=== PATIENT | male | born 1995 | race Two or more races ===

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

== ENCOUNTER 2018-05-10 19:08 | Emergency (ER) | payer OTHER ==
[2018-05-10] MEDS ORDERED: RANITIDINE 50 MG/2 ML VIAL IVP ONE (19:21)
[2018-05-10] MEDS ORDERED: EPINEPHrine 1 MG/ML INJ IM ONE (19:21)
[2018-05-10] MEDS ORDERED: NS 1,000 ML IV ONE (19:21)
[2018-05-10] MEDS ORDERED: methylPREDNISolone SOD SUCC 125 MG/2 ML VIAL IVP ONE (19:21)
--- NOTE | 2018-05-10 19:25 | EDPHY ---
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 He was eating at a restaurant when he had fairly sudden onset of throat and mouth swelling sensation, associated with an upset stomach. He took Benadryl 50 mg orally and vomited after the Benadryl. He continues to have gradually increasing throat swelling and difficulty swallowing. No rash, dizziness or shortness of breath. REVIEW OF SYSTEMS: complete 10 point ROS reviewed and is negative except for the noted elements in the HPI - Personal History Current Tetanus Diphtheria and Acellular Pertussis (TDAP): Yes - Medical/Surgical History Hx Asthma: No Hx Chronic Respiratory Disease: No Hx Diabetes: No Hx Cardiac Disease: No Hx Renal Disease: No Hx Cirrhosis: No Hx Alcoholism: No Hx HIV/AIDS: No Hx Splenectomy or Spleen Trauma: No Other PMH: denies - Social History Smoking Status: Never smoked - Physical Exam Exam: General Appearance: Alert, pleasant Eyes: Pupils equal and round, no periorbital swelling ENT, Mouth: Mucous membranes moist, pharyngeal erythema, no oral swelling Neck: Normal inspection, no stridor Respiratory: Lungs are clear to auscultation, no wheezing Cardiovascular: Regular rate and rhythm Neurological: A&O, nonfocal, normal gait Skin: No hives Extremities: No swelling Psychiatric: Mood and affect normal Constitutional: Initial Vital Signs Temperature (C) 36.6 C 05/10/18 19:09 Heart Rate 73 05/10/18 19:09 Respiratory Rate 19 05/10/18 19:09 Blood Pressure 160/79 H 05/10/18 19:09 O2 Sat (%) 98 05/10/18 19:09 O2 Delivery Mode Room Air Allergies/Adverse Reactions: egg [eggs] Allergy (Verified 05/10/18 19:09) peanut Allergy (Verified 05/10/18 19:09) Home Medications: Medication Instructions Recorded methylPREDNISolone [Medrol Dose 4 mg PO DAILY #1 ea 09/06/16 Jh] EPINEPHrine [Epipen 0.3 MG] 0.3 mg IM ONCE #2 syr 05/10/18 predniSONE 60 mg PO DAILY #9 tab 05/10/18 Medical Decision Making ED Course/Re-evaluation: This patient presents with anaphylaxis. Benadryl 25 mg IV, Solu-Medrol 125 mg IV and epinephrine 0.3 mg IM given. 8 p.m.-feeling better, slight throat swelling 8:50 p.m.-symptoms have resolved, tolerating oral fluids well. No throat swelling or sore throat. Warning signs discussed. Differential Diagnosis: Differential diagnosis includes though it is not limited to laryngeal edema, bronchospasm, hypotension, angioedema. - Data Points Medications Given: Discontinued Medications Diphenhydramine HCl (Benadryl Injection) 25 mg IVP EDNOW ONE Stop: 05/10/18 19:22 Last Admin: 05/10/18 19:25 Dose: 25 mg Epinephrine HCl (Epinephrine) 0.3 mg IM EDNOW ONE Stop: 05/10/18 19:22 Last Admin: 05/10/18 19:24 Dose: 0.3 mg Sodium Chloride (Ns) 1,000 mls @ 0 mls/hr IV ONCE ONE; Wide Open PRN Reason: Protocol Stop: 05/10/18 19:22 Last Admin: 05/10/18 19:28 Dose: 1,000 mls Methylprednisolone Sodium Succinate (Solu-Medrol) 125 mg IVP EDNOW ONE Stop: 05/10/18 19:22 Last Admin: 05/10/18 19:25 Dose: 125 mg Ranitidine HCl (Zantac) 50 mg IVP EDNOW ONE Stop: 05/10/18 19:22 Last Admin: 05/10/18 19:25 Dose: 50 mg Departure - Departure Disposition: Home, Routine, Self-Care Clinical Impression: Acute anaphylaxis Qualifiers: Encounter type: initial encounter Qualified Code(s): T78.2XXA - Anaphylactic shock, unspecified, initial encounter Condition: Good Instructions: Anaphylaxis (ED) Additional Instructions: Take Claritin in the morning and Benadryl at night while the rash persists. Take prednisone as prescribed. Return for worsening symptoms or any concerns. Referrals: NONE *PRIMARY CARE P,. [Primary Care Provider] - As per Instructions Lizette Hernandez DO [Doctor of Osteopathy] - As per Instructions Prescriptions: EPINEPHrine [Epipen 0.3 MG] 0.3 mg IM ONCE #2 syr predniSONE 60 mg PO DAILY #9 tab
[2018-05-10 21:19] VITALS: BP 134/70
== END 2018-05-10 21:18 | disposition home or self-care (01) ==
DX: T78.2XXA Anaphylactic shock, unspecified, initial encounter (principal); E86.9 Volume depletion, unspecified
CPT/HCPCS: 96374